=== PATIENT | female | born 1945 | race Caucasian/White ===

== ENCOUNTER 2024-06-01 12:49 | Emergency (ER) | payer OTHER ==
[~2024-06-01] VITALS: Ht 160 cm; Wt 54.4 kg
[2024-06-01] MEDS ORDERED: TDAP DIPH,PERTUSS,TET VAC/PF 0.5 ML DISP.SYRIN IM ONE (13:56)
[2024-06-01] MEDS: TDAP DIPH,PERTUSS,TET VAC/PF 0.5 ML DISP.SYRIN IM ONE (14:10)
[2024-06-01 14:21] LABS: BASOPHILS % (AUTO) 0.5 % (0.0-2.0); EOSINOPHILS % (AUTO) 0.1 % (0.0-7.0); HEMATOCRIT 36.7 % (31.2-41.9); HEMOGLOBIN 12.4 g/dL (10.9-14.3); LYMPHOCYTES # (AUTO) 1.6 K/uL (0.8-4.8); LYMPHOCYTES % (AUTO) 18.1 % (20.5-51.5); MEAN CORPUSCULAR HEMOGLOBIN 35.4 uug (24.7-32.8); MEAN CORPUSCULAR HGB CONC 34 g/dL (32.3-35.6); MEAN CORPUSCULAR VOLUME 104.8 fL (75.5-95.3); MONOCYTES # (AUTO) 0.6 K/uL (0.1-1.30); MONOCYTES % (AUTO) 7.2 % (0.0-11.0); NEUTROPHILS # (AUTO) 6.4 K/uL (1.8-8.9); NEUTROPHILS % (AUTO) 74.1 % (38.5-71.5); PLATELET COUNT (AUTO) 167 K/uL (179-408); RED CELL DISTRIBUTION WIDTH 14.5 % (12.3-17.7); WHITE BLOOD COUNT (AUTO) 8.7 K/uL (3.8-11.8)
[2024-06-01 14:28] LABS: DIFFERENTIAL COMMENT 1
[2024-06-01 14:29] LABS: CALCIUM 9.7 mg/dL (8.5-10.1); CARBON DIOXIDE 23 mmol/L (21-32); CHLORIDE 105 mmol/L (98-107); CREATININE 0.5 mg/dL (0.6-1.3); GLUCOSE 109 mg/dL (74-106); POTASSIUM 3.9 mmol/L (3.5-5.1); SODIUM SERUM 143 mmol/L (136-145); UREA NITROGEN, BLOOD 6 mg/dL (7-18)
[2024-06-01] MEDS ORDERED: MAGNESIUM SULFATE/D5W 100 ML ONE ×3 (15:01→17:41)
[2024-06-01] MEDS: MAGNESIUM SULFATE/D5W 100 ML IV SCH (15:32)
[2024-06-01] MEDS ORDERED: CYANOCOBALAMIN 1000 MCG/ML VIAL ONE (17:17)
[2024-06-01] MEDS: CYANOCOBALAMIN 1000 MCG/ML VIAL IM ONE (17:24)
[2024-06-01 19:18] VITALS: BP 149/69; TEMP 97.2; O2SAT 99
== END 2024-06-01 19:52 | disposition home or self-care (01) ==
LOC: ER 12:49
DX: S01.81XA Laceration without foreign body of other part of head, initial encounter (principal); E78.5 Hyperlipidemia, unspecified; I11.9 Hypertensive heart disease without heart failure; E53.8 Deficiency of other specified B group vitamins; X58.XXXA Exposure to other specified factors, initial encounter; Y93.89 Activity, other specified; Y92.89 Other specified places as the place of occurrence of the external cause; Y99.8 Other external cause status
CPT/HCPCS: 36415; 70450; 83735; 84484; 85025; 90715; A4606; A4663; J3420; J3475